=== PATIENT | female | born 1965 | race Two or more races ===

== ENCOUNTER 2019-02-16 23:11 | Emergency (ER) | payer SELFPAY ==
--- NOTE | 2019-02-17 00:05 | ER Document Report ---
ED General - General Chief Complaint: Dizziness Stated Complaint: DIZZINESS,CHEST PAIN Time Seen by Provider: 02/16/19 23:46 - HPI Notes: Patient is a 53-year-old female who presents emergency department for evaluation of chest pain, dizziness. She is not a very good historian. She states that she has had chest pain intermittently for some time. She states sometimes she feels like it is anxiety. She describes a tightness with associated shortness of breath and dizziness. She describes dizziness and lightheadedness, but no vertiginous symptoms, no hearing loss, no tinnitus. This pain is nonradiating. She is unsure as to whether or not she is ever had a stress test in the past. She states she had some sort of abdominal pain few months ago and was admitted to [facility] [place] for a week. She really cannot elaborate any further. She has a history of high blood pressure, was on blood pressure medication, but lost her Medicaid coverage. She has been without blood pressure medications for several years. She cannot tell me what medication she used to be on. - Related Data Allergies/Adverse Reactions: No Known Allergies Allergy (Unverified 02/16/19 23:29) Past Medical History - General Information source: Patient - Social History Smoking Status: Former Smoker Chew tobacco use (# tins/day): No Frequency of alcohol use: Heavy - Drinks alcohol daily, admits to 2 40s today Drug Abuse: Marijuana Family History: Reviewed & Not Pertinent Patient has suicidal ideation: No Patient has homicidal ideation: No - Past Medical History Cardiac Medical History: Reports: Hx Hypertension Review of Systems - Review of Systems Constitutional: No symptoms reported EENT: No symptoms reported Cardiovascular: See HPI Respiratory: No symptoms reported Gastrointestinal: No symptoms reported Genitourinary: No symptoms reported Musculoskeletal: No symptoms reported Skin: No symptoms reported Neurological/Psychological: See HPI Physical Exam - Vital signs Vitals: Pulse Resp BP Pulse Ox 75 18 144/86 H 99 02/16/19 23:11 02/16/19 23:11 02/16/19 23:11 02/16/19 23:11 - Notes Notes: Vital signs reviewed, please refer to chart. Head is normocephalic, atraumatic. Pupils equal round, reactive to light. Neck is supple without meningismus. Heart is regular rate and rhythm. Lungs are clear to auscultation bilaterally. Abdomen is soft, nontender, normoactive bowel sounds throughout. Extremities without cyanosis, clubbing. Posterior calves are nontender. Peripheral pulses are equal. Skin is warm and dry. Patient is awake, alert, oriented x3. Cranial nerves II - XII are grossly intact without focal neurological deficits. Strength is plus 5 out of 5 bilateral upper and lower extremities. Sensation is intact. Reflexes symmetrical. Intact [id number], rapid alternating mov ements, [id number]. Course - Re-evaluation Re-evalutation: 02/17/19 00:05 Patient presents to the emergency department for evaluation. She has not alcohol dependent 53-year-old female with a history of high blood pressure, not treated. She is not a very forthcoming historian and admits to drinking alcohol today. Given this information I am inclined to evaluate her for a cardiac etiology. She has a normal neurological exam. No signs of recent head trauma. We will continue to monitor. 02/17/19 01:17 Laboratory investigations are entirely unremarkable. She is not having any chest pain currently. She states this feels consistent with her anxiety and I agreed that this is the likely etiology. The patient states she has a history of high blood pressure and is not on any medications. Her current blood pressure is 125/77. She is oxygenating well. Her heart rate is in the 70s. Her EKG shows no changes. She is staying with her niece here in town, is from the [facility]. She does have residence issues, is currently homeless. [facility] stay in the area. She is to return to the ED with worsening or new concerning symptoms of any sort. - Vital Signs Vital signs: Temp Pulse Resp BP Pulse Ox 98.6 F 75 16 144/83 H 100 02/16/19 23:29 02/16/19 23:11 02/16/19 23:29 02/16/19 23:29 02/16/19 23:29 - Laboratory Result Diagrams: 02/16/19 23:24 02/16/19 23:24 Laboratory results interpreted by me: 02/16/19 02/16/19 23:24 23:24 MCV 100 H MCH 33.6 H RDW 14.8 H Plt Count 131 L Potassium 3.5 L Creatinine 0.48 L AST 97 H Alkaline Phosphatase 259 H Creatine Kinase 227 H - Diagnostic Test Radiology reviewed: Reports reviewed Radiology results interpreted by me: 02/17/19 01:18 Chest X-Ray 02/16/19 23:59 IMPRESSION: Elevation of the right hemidiaphragm with a small amount of atelectasis in the right base - EKG Interpretation by Me Additional EKG results interpreted by me: 02/17/19 01:18 Sinus mechanism with a rate of 80 bpm. Normal axis and intervals, no acute ST changes concerning for ischemia or infarction. Discharge - Discharge Clinical Impression: Dizziness Chest pain Qualifiers: Chest pain type: unspecified Qualified Code(s): R07.9 - Chest pain, unspecified Condition: Stable Disposition: HOME, SELF-CARE Instructions: Dizziness ([facility]), Chest Pain of Unclear Cause ([facility]) Additional Instructions: No clear cause was found for your symptoms today. Rest, stay well-hydrated. Follow-up with primary care, you can follow-up with the [facility] if you stay in the [place] area. If you develop worsening or new concerning symptoms of any sort, please return immediately to the emergency department for evaluation.
[2019-02-17 00:16] LABS: ABSOLUTE BASOPHILS # (AUTO) 0.1 10^3/uL (0.0-0.2); ABSOLUTE EOSINOPHILS # (AUTO) 0.1 10^3/uL (0.0-0.6); ABSOLUTE LYMPHOCYTES (AUTO) 1.2 10^3/uL (0.5-4.7); ABSOLUTE MONOCYTES (AUTO) 0.7 10^3/uL (0.1-1.4); ABSOLUTE NEUT (AUTO) 4.6 10^3/uL (1.7-8.2); EOSINOPHILS % (AUTO) 1.6 % (0-6); HEMOGLOBIN 12.8 g/dL (12.0-15.5); LYMPHOCYTES % (AUTO) 17.8 % (13-45); MEAN CORPUSCULAR HEMOGLOBIN 33.6 pg (27.0-33.4); MEAN CORPUSCULAR HGB CONC 33.7 g/dL (32.0-36.0); MEAN CORPUSCULAR VOLUME 100 fl (80-97); MONOCYTES % (AUTO) 10.6 % (3-13); PLATELET COUNT 131 10^3/uL (150-450); RED BLOOD COUNT 3.81 10^6/uL (3.72-5.28); RED CELL DISTRIBUTION WIDTH 14.8 % (11.5-14.0); TOTAL CELLS COUNTED % (AUTO) 100 %; WHITE BLOOD COUNT 6.7 10^3/uL (4.0-10.5)
--- NOTE | 2019-02-17 00:30 | RADIOLOGY REPORT (SQ) ---
EXAM DESCRIPTION: XR CHEST 2 VIEWS COMPLETED DATE/TME: 02/16/2019 23:59 CLINICAL HISTORY: 53 years Female chest pain, dizziness COMPARISON: None. FINDINGS: The cardiomediastinal silhouette appears unremarkable. No consolidating infiltrates or pleural effusions. No pneumothorax. Elevation of the right hemidiaphragm. Degenerative changes in the spine. IMPRESSION: Elevation of the right hemidiaphragm with a small amount of atelectasis in the right base
[2019-02-17 00:44] LABS: ALBUMIN 3.8 g/dL (3.5-5.0); ALKALINE PHOSPHATASE 259 U/L (38-126); ANION GAP 9 (5-19); ASPARTATE AMINO TRANSFERASE 97 U/L (14-36); BILIRUBIN,DIRECT 0.2 mg/dL (0.0-0.4); BILIRUBIN,TOTAL 0.7 mg/dL (0.2-1.3); BLOOD UREA NITROGEN 12 mg/dL (7-20); CALCIUM 8.8 mg/dL (8.4-10.2); CARBON DIOXIDE 25 mmol/L (22-30); CHLORIDE 104 mmol/L (98-107); CREATINE KINASE 227 U/L (30-135); GLUCOSE 102 mg/dL (75-110); POTASSIUM 3.5 mmol/L (3.6-5.0); TOTAL PROTEIN 7.7 g/dL (6.3-8.2)
[2019-02-17 00:54] LABS: CREATINE KINASE MB 2.01 ng/mL (<4.55); TROPONIN I < 0.012 ng/mL
--- NOTE | 2019-02-17 01:14 | EKG REPORT ---
SEVERITY:- NORMAL ECG - SINUS RHYTHM : Confirmed by: Gely Hester MD 17-Feb-2019 01:13:25
[2019-02-17] MEDS ORDERED: ACETAMINOPHEN 325 MG TABLET PO ONE (01:41)
[2019-02-17 02:30] VITALS: BP 124/78
== END 2019-02-17 02:11 | disposition home or self-care (01) ==
LOC: ER 23:11
DX: R42 Dizziness and giddiness (principal); R07.9 Chest pain, unspecified; F41.9 Anxiety disorder, unspecified; R10.9 Unspecified abdominal pain; I10 Essential (primary) hypertension; Z87.891 Personal history of nicotine dependence
CPT/HCPCS: 36415; 71046; 80053; 82550; 82553; 83690; 84484; 85025; 93005; 93010